=== PATIENT | female | born 1990 | race Caucasian/White ===

== ENCOUNTER 2022-10-14 12:11 | Inpatient (IN) ==
[2022-10-14] MEDS ORDERED: Lidocaine 1% VIAL 10 MG/ML 30 ML VIAL INJ PRN (12:35)
[2022-10-14] MEDS ORDERED: miSOPROStol 100 mcg TAB VAGINAL ONE (13:00)
[2022-10-14 14:31] LABS: Urine Benzodiazepine Screen None Detected (None Detect); Urine Cannabinoids Screen None Detected (None Detect); Urine Opiates Screen None Detected (None Detect)
[2022-10-14] MEDS ORDERED: miSOPROStol 100 mcg TAB PO ONE (17:50)
[2022-10-14] MEDS ORDERED: Dinoprostone 10 MG VAG.SUPP VAGINAL ONE (22:13)
[2022-10-15] MEDS ORDERED: Lactated Ringers 1000 ml BAG 1,000 ML IV ONE ×3 (01:30→19:36)
[2022-10-15 01:41] LABS: ABS Basophils 0.1 10^3/uL (0.0-0.1); ABS Eosinophils 0.1 10^3/uL (0.0-0.5); ABS Lymphocytes 3.2 10^3/uL (1.0-4.8); ABS Neutrophils 7.2 10^3/uL (1.5-7.6); ABS Nucleated RBC 0.01 10^3/ul; Eosinophil % 0.6 %; Hematocrit 38.9 % (35-45); Hemoglobin 13.9 g/dL (11.5-14.3); Lymphocyte % 27.9 %; Mean Corpuscular Hemoglobin 31.1 pg (27-33); Mean Corpuscular Hgb Conc 35.8 g/dL (31-36); Mean Corpuscular Volume 86.9 fL (80-97); Mean Platelet Volume 9.3 fL (7.5-11.2); Nucleated Red Blood Cells % 0.1 /100 WBC (0.0-0.4); Platelet Count 191 10^3/uL (150-450); Red Blood Count 4.47 10^6/uL (3.63-4.92); Red Cell Distribution Width 13.3 % (12-17); White Blood Count 11.5 10^3/uL (3.8-11.8)
[2022-10-15] MEDS ORDERED: Ondansetron 4 mg VIAL 2 MG/ML 2 ml VIAL IV ONE (04:00)
[2022-10-15] MEDS ORDERED: Influenza vaccine *QUAD* *2023-24* 0.5 ML SYRINGE IM ONE (09:00)
[2022-10-15] MEDS ORDERED: Oxytocin in LR 20,000 MILLI.UNIT/1,000 ML BAG IV SCH (10:45)
[2022-10-15] MEDS: Lactated Ringers 1000 ml BAG 1,000 ML IV SCH ×2 (18:33→19:42)
[2022-10-15] MEDS ORDERED: OBEPIDURAL (200 ML) 200 ML EPIDURAL ONE (18:57)
[2022-10-15] MEDS ORDERED: Lidocaine 1.5% EPI 1:200,000 30 ML SDV ONE (18:57)
[2022-10-15] MEDS ORDERED: Sodium Citrate/Citric Acid LIQ 15 ML UDC PO PRN (19:36)
[2022-10-15] MEDS ORDERED: Phenylephrine 40 mcg/mL 10mL (400mcg) SYRINGE IV PUSH PRN ×2 (19:36)
[2022-10-15] MEDS ORDERED: Lactated Ringers 1000 ml BAG 1,000 ML IV SCH (20:00)
[2022-10-15] MEDS ORDERED: OBEPIDURAL (200 ML) 200 ML EPIDURAL SCH (20:00)
[2022-10-15 20:46] LABS: Urine Appearance Cloudy; Urine Bilirubin Negative (Negative); Urine Blood 2+ (Negative); Urine Color Yellow; Urine Glucose Negative (Negative); Urine Ketones 1+ (Negative); Urine Nitrite Negative (Negative); Urine Protein Negative (Negative); Urine Specific Gravity 1.009 (1.002-1.030); Urine Urobilinogen Negative (Negative)
[2022-10-15 21:00] LABS: Urine Bacteria Absent (Absent); Urine Red Blood Cell 2+(6-10/hpf) (Absent); Urine Squamous Epithelial Cell Present (Absent); Urine Transitional Epithelial Present (Absent); Urine White Blood Cell 1+(6-10/hpf) (Absent)
[2022-10-16] MEDS ORDERED: ceFAZolin 2 GM in NS PREMIX 2 GM/100 ML BAG IVPB ONE (08:22)
[2022-10-16] MEDS ORDERED: Azithromycin 500 mg/250 ml NS 500 MG/250 ML BAG IVPB ONE (08:22)
[2022-10-16] MEDS ORDERED: Lidocaine 2% PF 10 ML AMP (OR) ONE ×2 (09:04→10:26)
[2022-10-16] MEDS ORDERED: Oxytocin 10 UNITS/ML 1 ML VIAL ONE (09:04)
[2022-10-16] MEDS ORDERED: Ondansetron 4 mg VIAL 2 MG/ML 2 ml VIAL ONE (09:04)
[2022-10-16] MEDS: Lactated Ringers 1000 ml BAG 1,000 ML IV SCH (09:12)
[2022-10-16] MEDS ORDERED: Methylergonovine 0.2 mg AMPULE 1 ml AMP ONE (09:57)
[2022-10-16] MEDS ORDERED: Acetaminophen IV 1 GM/100ML 1,000 MG/100 ML BAG IV ONE (10:00)
[2022-10-16] MEDS ORDERED: Morphine PF AMP (0.5MG/ML) 5 MG/10 ML AMP ONE (10:08)
[2022-10-16] MEDS ORDERED: fentaNYL 100 mcg/2 ml 50 MCG/ML VIAL ONE (10:17)
[2022-10-16] MEDS ORDERED: Naloxone 0.4 mg VIAL 0.4 mg/ml 1 ml VIAL IV PRN (10:41)
[2022-10-16] MEDS ORDERED: HYDROmorphone 1 MG/1 ML SYRINGE IV PRN (10:41)
[2022-10-16] MEDS ORDERED: Metoclopramide 5 MG/ML VIAL (10 mg) IV PRN (10:43)
[2022-10-16] MEDS ORDERED: Acetaminophen IV 1 GM/100ML 1,000 MG/100 ML BAG IV PRN (10:43)
[2022-10-16] MEDS ORDERED: Ondansetron 4 mg VIAL 2 MG/ML 2 ml VIAL IV PRN (10:43)
[2022-10-16] MEDS ORDERED: Naloxone 0.4 mg VIAL 0.4 mg/ml 1 ml VIAL IV PUSH PRN (10:43)
[2022-10-16] MEDS ORDERED: Methylergonovine 0.2 mg AMPULE 1 ml AMP IM ONE (10:57)
[2022-10-16] MEDS ORDERED: Witch Hazel PAD JAR TOPICAL PRN (10:57)
[2022-10-16] MEDS ORDERED: Glycerin ADULT 2.4 gm SUPP PR PRN (10:57)
[2022-10-16] MEDS ORDERED: Dibucaine 1% OINT 28.35 GM TUBE PR PRN (10:57)
[2022-10-16] MEDS ORDERED: Lactated Ringers 1000 ml BAG 1,000 ML IV SCH (11:00)
[2022-10-17 07:00] LABS: ABS Lymphocytes 1.7 10^3/uL (1.0-4.8); ABS Monocytes 0.7 10^3/uL (0.0-0.9); ABS Neutrophils 10.6 10^3/uL (1.5-7.6); ABS Nucleated RBC 0.01 10^3/ul; Eosinophil % 0.1 %; Hematocrit 26.1 % (35-45); Hemoglobin 9.3 g/dL (11.5-14.3); Lymphocyte % 13.1 %; Mean Corpuscular Hemoglobin 31.3 pg (27-33); Mean Corpuscular Hgb Conc 35.7 g/dL (31-36); Mean Corpuscular Volume 87.6 fL (80-97); Mean Platelet Volume 8.5 fL (7.5-11.2); Platelet Count 147 10^3/uL (150-450); Red Blood Count 2.98 10^6/uL (3.63-4.92); Red Cell Distribution Width 13.3 % (12-17)
[2022-10-18 08:44] VITALS: BP 128/85
== END 2022-10-18 16:24 | disposition home or self-care (01) | DRG 540 ==
LOC: MCHOBOUT 12:11 → MCHOB 12:38
PROVIDERS: ADMIT Midwife; ATTEND Midwife